=== PATIENT | male | born 1955 | race Caucasian/White ===

== ENCOUNTER → 2018-05-19 | Outpatient (CLI) | payer OTHER ==
[~2018-05-19] VITALS: Ht 167.6 cm; Wt 86.2 kg
[~2018-05-19] MED LIST: LIPITOR 20 MG T20 M1 PO
[2018-05-19 08:13] VITALS: BP 152/89
[2018-05-19 08:50] VITALS: BP 154/86
[2018-05-19 09:00] VITALS: BP 148/80
[2018-05-19 09:03] VITALS: BP 147/75
[2018-05-19 09:06] VITALS: BP 155/68
[2018-05-19 09:22] VITALS: BP 124/65
== END | disposition home or self-care (01) ==
LOC: M.ULTRA 07:30
DX: C61 Malignant neoplasm of prostate (principal); Z88.8 Allergy status to other drugs, medicaments and biological substances